=== PATIENT | female | born 1965 | race Caucasian/White ===

== ENCOUNTER → 2020-12-15 | Outpatient (CLI) | payer BC, OTHER | LOC: SJCVCIMAG 07:20 | PROVIDERS: ATTEND Internal Medicine | DX: I08.1 Rheumatic disorders of both mitral and tricuspid valves (principal); I27.20 Pulmonary hypertension, unspecified; R00.0 Tachycardia, unspecified; I49.3 Ventricular premature depolarization; R06.00 Dyspnea, unspecified; R55 Syncope and collapse ==